=== PATIENT | male | born 1975 | race Caucasian/White ===

== ENCOUNTER → 2018-05-13 12:58 | Outpatient (POV) | payer MEDICAID, SELFPAY ==
[2018-05-13 13:21] VITALS: BP 162/85; PULSE 98; RESP 18; O2SAT 98
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
== END ==
PROVIDERS: Visit Provider Clinical Nurse Specialist Family Health
DX: M51.16 Intervertebral disc disorders with radiculopathy, lumbar region (principal); M48.061 Spinal stenosis, lumbar region without neurogenic claudication
CPT/HCPCS: 99202